=== PATIENT | male | born 1980 | race Caucasian/White ===

== ENCOUNTER 2020-12-29 01:50 | Outpatient (CLI) | payer OTHER, SELFPAY ==
[2020-12-30 13:07] LABS: COVID-19 RT-PCR UVMMC Result Negative (Negative)
== END 2020-12-29 02:10 ==
PROVIDERS: PCP Nurse Practitioner Family; Visit Provider Nurse Practitioner Family
DX: Z20.822 Contact with and (suspected) exposure to COVID-19 (principal)
CPT/HCPCS: U0003

== ENCOUNTER 2021-01-26 11:24 | Outpatient (REF) | payer OTHER, SELFPAY ==
[2021-01-26 13:21] LABS: Anion Gap 3.8 mmol/L (3-11); BUN 13 mg/dL (7-18); CO2 28.2 mmol/L (21.0-32.0); CREATININE 0.9 mg/dL (0.70-1.30); Calcium 9.1 mg/dL (8.5-10.1); Calculated LDL 167 mg/dL (<100); Chloride 104 mmol/L (98-107); Cholesterol 231 mg/dL (<200); Glucose 106 mg/dL (74-106); HDL Cholesterol 52 mg/dL (40-60); Potassium 4.5 mmol/L (3.5-5.1); Sodium 136 mmol/L (136-145); Triglyceride 62 mg/dL (<150)
== END 2021-01-26 11:25 | disposition home or self-care (01) ==
LOC: LBN 11:24
PROVIDERS: PCP Nurse Practitioner Family; Visit Provider Nurse Practitioner Family
DX: Z00.00 Encounter for general adult medical examination without abnormal findings (principal); Z13.220 Encounter for screening for lipoid disorders; Z13.228 Encounter for screening for other metabolic disorders
CPT/HCPCS: 80048; 80061

== ENCOUNTER 2021-04-02 10:58 | Outpatient (CLI) | payer OTHER, SELFPAY ==
--- NOTE | 2021-04-02 09:00 | DI.RAD_ITS ---
Exam(s) XR LUMBAR SPINE COMPLETE EXAM: XR LUMBAR SPINE COMPLETE CLINICAL HISTORY: osteopathology M54.5 LOW BACK PAIN. TECHNIQUE: 2D digital imaging was performed. COMPARISON: No exams were available for comparison FINDINGS: There is normal alignment. No spondylolysis or spondylolisthesis. There is disc space narrowing at L1-L2 and L2-L3. Endplate osteophytes are seen from L1-L2 through L3-L4. No acute fracture or sublu xation is seen. The bones are normally mineralized. The soft tissues are unremarkable. IMPRESSION: [id number] degenerative changes in the lumbar spine. DATA REPOSITORY: RADIATION DOSE DELIVERED:
--- NOTE | 2021-04-02 09:00 | DI.RAD_ITS ---
Exam(s) XR HIP LT COMPLETE AP PELVIS EXAM: XR HIP LT COMPLETE AP PELVIS CLINICAL HISTORY: left hip apin M54.9 LOW BACK PAIN, M19.90 OSTEOARTHRITIS. TECHNIQUE: 2D digital imaging was performed. COMPARISON: No exams were available for comparison FINDINGS: The bones are normally mineralized. The sacroiliac joints and symphysis pubis are intact. Mild dege nerative changes are seen in the hips. The soft tissues are unremarkable. No suspicious lytic or sc lerotic lesions are seen. IMPRESSION: Mild degenerative changes of the hips. DATA REPOSITORY: RADIATION DOSE DELIVERED:
== END 2021-04-02 11:18 ==
PROVIDERS: PCP Nurse Practitioner Family; Visit Provider Nurse Practitioner Family
DX: M54.5 Low back pain (principal); M51.36 Other intervertebral disc degeneration, lumbar region; M25.78 Osteophyte, vertebrae
CPT/HCPCS: 72110; 73502

== ENCOUNTER 2021-04-09 01:52 | Outpatient (CLI) | payer OTHER, SELFPAY ==
--- NOTE | 2021-04-09 08:45 | DI.MRI_ITS ---
Exam(s) MR LUMBAR SPINE WO EXAM: MR LUMBAR SPINE WO CLINICAL HISTORY: DJD lumbar spine, chronic low back pain,M51.36. TECHNIQUE: Multiplanar multisequence MRI of the Lumbar spine was performed. COMPARISON: No exams were available for comparison FINDINGS: Five lumbar vertebrae are presumed. Conus medullaris is at normal level. There is no evidence of conus mass nor subjacent clumping of in trathecal nerve roots to suggest arachnoiditis. The distal thecal sac appears unremarkable.There is no evidence of Tarlov intrasacral cysts nor other significant findings within the sacral canal Bones:There are no fractures nor ominous osseous lesions in the lumbar vertebral bodies and visualize d sacrum. There are prominent Modic type 1 sub endplate marrow edema changes on both sides of the L2 -3 disc space. With respect to the individual levels... T12-L1: Normal disc height and signal. However, there is a small posterolateral left disc protrusion seen on the sagittal images. The axial sequences did not cover this area. L1-2: Advanced disc space narrowing both sides the disc space. Left-sided osteophytes. Small benign intraosseous hemangioma seen in the posterior aspect of L1 vertebral body. Asymmetric mild retrolis thesis of L1 upon L2, slightly more so left of center at with also annular bulging at this level. Ce ntral canal dimensions are lower normal. There is slight impression of the anterior left side of the thecal sac at this level by the annular bulging. There is no significant foraminal stenosis. No fa cet arthropathy. L2-3: Advanced disc height loss also evident at this level, more prominent on the right than the left side of this disc space and indeed there are more prominent Modic type 1 sub endplate marrow edema c hanges on the right side where there also anterolateral osteophytes. There is an element of mild ret rolisthesis of L 2 upon L3 at this level. Mild central spinal canal stenosis severe foraminal stenos is on the right side at this level. Milder-moderate foraminal stenosis on the left side at this leve l. Moderate facet arthropathy. L3-4: Mild decreased disc height at this level. Mild retrolisthesis of L3 relative to L4. There is annular bulging with a superimposed posterolateral left disc protrusion. Mild central spinal canal s tenosis. Severe foraminal stenosis evident on the left side at this level. Milder foraminal stenosi s on the right side. Mild facet arthropathy bilaterally. L4-5: Preserved disc height and signal. No disc herniation at this level. No central canal stenosis . No foraminal stenosis. No facet arthropathy. L5-S1: Normal disc height and signal. No disc herniation or central canal stenosis nor foraminal magali nosis. No facet arthropathy. Soft tissues: paraspinal soft tissues appear unremarkable. IMPRESSION: 1. Most significant findings here are in the mid and upper lumbar spine as described above at L2-3 an d L3-4 levels where there is an element of retrolisthesis of both these levels and severe asymmetric foraminal stenosis, severe on the right side L2-3 level and severe on the left side at L3-4 level. A lso mild canal stenosis centrally at both these levels. 2. There are prominent Modic type 1 sub endplate marrow edema changes at L2-3 level on the right side where there is advanced disc space narrowing. 3. No significant findings at L4-5 and L5-S1 levels. DATA REPOSITORY:
== END 2021-04-09 02:12 ==
PROVIDERS: PCP Nurse Practitioner Family; Visit Provider Nurse Practitioner Family
DX: M51.36 Other intervertebral disc degeneration, lumbar region (principal); M54.5 Low back pain; G89.29 Other chronic pain
CPT/HCPCS: 72148

== ENCOUNTER 2021-05-18 13:09 | Outpatient (REF) | payer OTHER, SELFPAY ==
[2021-05-18 18:09] LABS: Abs Immature Grans 0.01 10^3/uL (0.0-0.06); Absolute Basophil Count 0.09 10^3/uL (0.0-0.2); Absolute Eosinophil Count 0.14 10^3/uL (0.0-0.7); Absolute Lymphocyte Count 2.36 10^3/uL (1.2-3.4); Absolute Neutrophil Count 2.13 10^3/uL (1.2-6.7); Basophils % 1.7; Eosinophils % 2.7; HCT 46.7 % (40.0-50.0); HGB 15.5 g/dL (13.5-17.5); Immature Grans % 0.2; Lymphocytes % 45.1; MCH 27.2 pg (27.0-33.0); MCHC 33.2 % (32.0-36.0); MCV 81.9 fL (80-95); MPV 9.1 fL (8.0-11.0); Monocytes % 9.6; Neutrophils % 40.7; Nucleated RBC 0 %; Platelet Count 282 10^3/uL (130-400); RDW 12.7 % (11.8-14.1); RDW-SD 38.1 fL; WBC 5.23 10^3/uL (4.4-10.8)
[2021-05-18 18:17] LABS: ALT 58 U/L (16-63); AST 33 U/L (15-37); Albumin 4.4 g/dL (3.4-5.0); Alkaline Phosphatase 66 U/L (46-116); BUN 16 mg/dL (7-18); Bilirubin, Total 0.6 mg/dL (0.2-1.0); CREATININE 0.9 mg/dL (0.70-1.30); Calcium 9.5 mg/dL (8.5-10.1); Chloride 105 mmol/L (98-107); Glucose 80 mg/dL (74-106); Potassium 4.5 mmol/L (3.5-5.1); Sodium 142 mmol/L (136-145); Total Protein 7.5 g/dL (6.4-8.2)
== END 2021-05-18 13:10 | disposition home or self-care (01) ==
LOC: LBN 13:09
PROVIDERS: PCP Nurse Practitioner Family; Visit Provider Nurse Practitioner Family
DX: Z01.818 Encounter for other preprocedural examination (principal); M54.5 Low back pain; G89.29 Other chronic pain
CPT/HCPCS: 80053; 85025

== ENCOUNTER 2021-06-08 16:58 | Emergency (ER) | payer OTHER, SELFPAY ==
[2021-06-08] VITALS (15 sets, daily range): BP systolic 121–139; BP diastolic 70–85; PULSE 76–91; RESP 13–22; TEMP 36.7; O2SAT 98–99
--- NOTE | 2021-06-08 17:00 | RT.EKG_ITS ---
APPROVED REPORT Exam: Resting ECG Reason for Exam: syncope Patient Location: E HR:72 bpm ECG Measurements Heart Rate 72 AXIS MI 174 P 72 QRSd 101 QRS 72 QT 346 T 43 QTc 378 Conclusion Sinus rhythm...normal P axis, V-rate 60- 99 no WPW, no brugada, Qtc 378, no HOCM. No STEMI, non-diagnostic EKG
[2021-06-08] MEDS: Normal Saline 1,000 ML 1000 ML IV (17:14)
[2021-06-08 17:27] LABS: Abs Immature Grans 0.04 10^3/uL (0.0-0.06); Absolute Eosinophil Count 0.32 10^3/uL (0.0-0.7); Absolute Lymphocyte Count 2.49 10^3/uL (1.2-3.4); Absolute Monocyte Count 0.78 10^3/uL (0.1-0.8); Absolute Neutrophil Count 5.51 10^3/uL (1.2-6.7); Basophils % 1.1; Eosinophils % 3.5; HCT 46.3 % (40.0-50.0); HGB 15.4 g/dL (13.5-17.5); Immature Grans % 0.4; Lymphocytes % 26.9; MCH 26.6 pg (27.0-33.0); MCHC 33.3 % (32.0-36.0); MPV 8.6 fL (8.0-11.0); Monocytes % 8.4; Neutrophils % 59.7; Nucleated RBC 0 %; Platelet Count 290 10^3/uL (130-400); RBC 5.79 10^6/uL (4.36-5.78); RDW 12.2 % (11.8-14.1); RDW-SD 35.4 fL; WBC 9.24 10^3/uL (4.4-10.8)
--- NOTE | 2021-06-08 17:30 | W.ED.GENAD ---
Discharge Plan Disposition Patient Disposition: HOME Condition: Stable Discharge Details Clinical Impression: Syncope, Acute dehydration Primary Care Provider: Oly Hartman ED Provider: Soniya Rivera Home Meds and New Rx's Prescriptions: Continued triamcinolone acetonide 0.1 % cream 1 applic topical DAILY PRN (Reason: dermatitis) Qty: 80 RF: 0 ibuprofen 600 MG tablet 600 mg PO Q6H PRN PRNQty: 30 RF: 0 Discharge Instructions Instructions: Dehydration (ED), Syncope (ED) Additional Instructions: I am concerned that your syncopal episodes may be linked to dehydration as well as the marijuana. Please abstain from any further of this. Please follow your postsurgical recommendations from your surgeon. Please encourage hydration. Tylenol to help with discomfort. If you develop fever/chills, increased pain or other new/worsening symptoms care urgently once again. Please follow-up with primary care next week for reevaluation. Referrals: Oly Hartman NP [Primary Care Provider] - Discharge Data Discharge Date/Time-TO BE ENTERED AT DEPARTURE: 06/08/21 19:40 Medical Decision Making Patient is a 41-year-old gentleman brought in via EMS and accompanied by his , chief complaint of syncopal episodes. Patient underwent discectomy at [facility] 10 days ago. States that his pain has progressively been improving. He has not been using any oral medications to help with discomfort. However, he does report the use of smoking marijuana and did smoke new marijuana today. 15 minutes after smoking, he suffered to syncopal episodes. Did have prodromal symptoms including feeling lightheaded and visual changes. He denies any headache. Denies any pain after syncopal episodes. Reports that this is hapened outside in the yard. Denies any chest pain, palpitations prior to or after event. He has not had episodes like this historically. Denies any recent fevers or chills. States that he is otherwise been feeling quite well in the postsurgical recovery phase. On exam, patient appears nontoxic. His vital signs are stable. His incision appears to be healing well with no evidence of infection. Normal cardiac exam. Lung sounds clear. Neurologic exam is intact. Differential diagnosis this time includes syncopal episode, dysrhythmia, anemia versus other. I not see any evidence of CVA, patient is PERC negative. Physical exam is not consistent with dissection. See no indication of infection on his exam. Also concerned that this may be associated with his marijuana use. STates that typically he smokes marijuana that he grows himself but that 15 minutes prior to the syncopal episodes he smoke marijuana he got from a friend. ECG reviewed by Dr. Hancock. NSR, rate 72. Please see her interpretation. No acute abnormality noted. Orthostatics obtained, no sigfnciant change Labs reviewed. No leukocytosis. Patient is not anemic, stable H&H. CMP without significant abnormality. Troponin within normal limits. Thyroid within normal limits. Urinalysis suggest dehydration. Patient is receiving hydration here. UDS significant for positive THC. Reevaluated the patient and discussed findings. Patient is feeling much improved. Patient was initially very hesitant to take any analgesics, including Tylenol. I did recommend they touch base with surgeon regarding the use of NSAIDs in the postoperative period. Has finally agreed to this for his postoperative pain. His pain did increase when just laying in our stretcher here. He does find improvement with ambulation. Patient ambulated with nursing staff without difficulty. Patient is feeling improved and requesting discharge at this time. Exam, history and work-up here does not suggest cardiac etiology. I did recommend that he abstain from marijuana. I recommended that he does treat his pain with Tylenol and speak further with his surgeon regarding any further postoperative instructions. Encourage hydration. does report that he drinks minimally throughout the course of the day. She will also help encourage hydration. Strict return precautions were discussed. I have asked that he follow-up with primary care in 1 week for reevaluation. All his questions and concerns were addressed and he is in agreement this plan. HPI General Mode of arrival: EMS. Date/Time Provider Initiated Documentation: 06/08/21 17:01. Limitations to Documentation: no limitations. Information obtained by: patient, family (), EMS and RN notes reviewed. History of Present Illness 41 year old M presents to the emergency department with the chief complaint of syncopal episodes after recent back surgery, described as moderate, with intensity rated at 6. Quality is described as aching, and is localized to the back. Patient reports no radiation. Patient started experiencing this week(s) (pain has been improving slowly since back surgery 10 days ago) and it has been constant. Immobilization improves symptom(s), Movement worsens symptoms . Patient notes syncope; denies confusion, chest pain, diaphoresis, fever/chills, headaches, loss of appetite, nausea/vomiting, rash, seizure, shortness of breath and weakness. Patient did receive the following treatments prior to arrival, none Related Data Home Medications Medication Instructions Recorded Confirmed ibuprofen 600 mg PO Q6H PRN PRN #30 tab 12/08/16 06/08/21 triamcinolone acetonide 0.1 % 1 applic TOPICAL DAILY PRN #80 g 01/26/21 06/08/21 topical cream Previous Rx's Medication Instructions Recorded ibuprofen 600 mg PO Q6H PRN PRN #30 tab 12/08/16 triamcinolone acetonide 0.1 % 1 applic TOPICAL DAILY PRN #80 g 01/26/21 topical cream Allergies Allergy/AdvReac Type Severity Reaction Status Date / Time lactose Allergy Diarrhea Unverified 06/08/21 17:01 General Stated Complaint: Dizzy/Sync STARR: 3 Review of Systems Constitutional Constitutional: Reports as per HPI, Denies chills, Denies fever(s), Denies headache(s), Denies lethargy and Denies poor appetite Eyes Eyes: Denies change in vision ENT Ears, Nose, Mouth, and Throat: Denies dizziness and Denies headache(s) Cardiovascular Cardiovascular: Reports as per HPI, Denies dyspnea and Denies dyspnea on exertion Respiratory Respiratory: Reports as per HPI, Denies chest congestion, Denies cough, Denies pain on inspiration, Denies pain with cough, Denies dyspnea, Denies dyspnea on exertion and Denies wheezing Gastrointestinal Gastrointestinal: Reports as per HPI, Denies abdominal pain, Denies diarrhea, Denies nausea and Denies vomiting Genitourinary Genitourinary: Denies system reviewed and no additional complaints, except as documented (denies change in urinary habits) Musculoskeletal Musculoskeletal: Reports as per HPI and Denies back pain Integumentary/Breasts Skin/Breast: Reports as per HPI and Denies rash Neurologic Neurologic: Reports as per HPI, Denies dizziness and Denies headache(s) Allergic/Immunologic Allergic/Immunologic: Denies wheezing [facility] Medical History Degenerative disc disease, lumbar Hyperlipidemia Osteoarthritis Surgical History S/P left inguinal hernia repair Family History Mother Heart disease Rheumatoid arthritis Type 2 diabetes mellitus Father No problems noted. Sister No problems noted. Sister No problems noted. Sister No problems noted. Brother No problems noted. Maternal Grandfather No problems noted. Maternal Grandmother Dementia Paternal Grandfather No problems noted. Paternal Grandmother No problems noted. Social History Smoking/Tobacco Use Status: Current-Occasional Tobacco Type: cigarettes Tobacco: How many years used: 20 Smokeless tobacco user: snuff and snus Quit status: not considering quitting Second Hand Exposure: Yes Smoking risk assessment performed?: Yes Alcohol Intake: former Drug use: Daily Substance use type: marijuana Do you feel safe at home: Yes Do you feel safe in your relationship?: Yes Exam Const General: cooperative, healthy appearing, comfortable, no acute distress, well developed and intoxicated appearing Nutritional Appearance: average body habitus and well nourished Orientation: alert, awake and oriented x3 HENMT Head: normal to inspection, no palpable skull fracture, normocephalic and atraumatic Ears: hearing grossly normal bilaterally, external ears normal and TM's normal bilaterally Face and sinus: normal facial exam Mouth: oral mucosae normal and moist mucous membranes Throat: posterior oropharynx normal Eyes General: appearance normal, both eyes and all related structures Chest Chest: normal inspection of the chest, normal palpation of entire chest wall and no crepitus Resp Effort & Inspection: normal respiratory effort, able to speak in complete sentences and no respiratory distress Auscultation: clear to auscultation bilaterally, no rales, no rhonchi and no wheezes Cardio Rate: regular rate Rhythm: regular rhythm Heart Sounds: S1 normal and S2 normal GI Inspection: normal to inspection, no edema and non-distended Palpation: soft, no hepatosplenomegaly, not firm, no guarding, not rigid and nontender Auscultation: normal bowel sounds Back/Spine/Pelvis Back: no CVA tenderness Thoracic/Lumbar Spine: other (incision over lumbar spine healing well with no evidence of infection on ex) Skin Trauma: other (incision, healing well) Neuro General: patient alert, patient awake and patient oriented x3 Cognition: normal cognition Speech: speech normal Gait: normal gait Motor: muscle tone normal throughout, strength 5/5 throughout, no pronator drift, no movement abnormalities noted and no fasciculations Sensory Exam: no sensory deficits noted Coordination: [id number]-[id number] test normal, [id number] test normal, Romberg test normal and Does not sway with eyes open Extrem General: normal to inspection, capillary refill normal, no pedal edema, no calf tenderness and normal gait Psych Appearance: grossly normal and well kempt Mental Status: mental status grossly normal Speech and Movement: speech and movement normal Course Vital Signs Vital signs: Vital Signs Temperature 36.7 C 06/08/21 16:58 Pulse 89 06/08/21 16:58 Respiratory Rate 20 06/08/21 16:58 Blood Pressure 137/77 06/08/21 16:58 Pulse Oximetry 99 06/08/21 16:58 Temperature 36.7 C 06/08/21 16:58 Temperature Source Skin 06/08/21 16:58 Pulse 89 06/08/21 16:58 Respiratory Rate 20 06/08/21 16:58 Respiratory Effort Non-Labored 06/08/21 17:14 Respiratory Depth Normal 06/08/21 17:14 Respiratory Pattern Normal 06/08/21 17:14 Blood Pressure 137/77 06/08/21 16:58 Blood Pressure Position Sitting 06/08/21 16:58 Pulse Oximetry 99 06/08/21 16:58 Oxygen Delivery Method Room Air 06/08/21 16:58 Oxygen Flow Rate 0 06/08/21 16:58 Pain Level 6 06/08/21 16:58
[2021-06-08 17:51] LABS: PTT Activated 20.7 sec (21.0-27.5); Prothrombin Time 10.4 sec (9.3-11.0)
[2021-06-08 17:57] LABS: ALT 37 U/L (16-63); AST 19 U/L (15-37); Albumin 3.9 g/dL (3.4-5.0); Alkaline Phosphatase 62 U/L (46-116); Anion Gap 13.3 mmol/L (3-11); BUN 17 mg/dL (7-18); Bilirubin, Total 0.3 mg/dL (0.2-1.0); CO2 23.7 mmol/L (21.0-32.0); Calcium 9.2 mg/dL (8.5-10.1); Chloride 101 mmol/L (98-107); Glucose 112 mg/dL (74-106); Magnesium 1.9 mg/dL (1.8-2.4); Potassium 3.8 mmol/L (3.5-5.1); Sodium 138 mmol/L (136-145); TSH 2.44 uIU/mL (0.36-3.74); Total Protein 7.6 g/dL (6.4-8.2)
[2021-06-08 17:58] LABS: Troponin I < 0.05 ng/mL (<0.06)
[2021-06-08 18:03] LABS: Bilirubin Negative (Negative); Blood Negative (Negative); Clarity Clear (Clear); Glucose Negative (Negative); Ketones Negative (Negative); Leukocyte Esterase Negative (Negative); Nitrite Negative (Negative); Specific Gravity >= 1.030 (1.005-1.025); Urobilinogen 0.2 EU/dL (Up TO 0.2)
[2021-06-08 18:29] LABS: *AMPHETAMINES SCREEN URINE Negative (Negative); *BARBITURATES SCREEN URINE Negative (Negative); *BENZODIAZEPINES SCREEN URINE Negative (Negative); Cannabinoids THC Positive (Negative); Cocaine Screen,Urine Negative (Negative); METHADONE URINE SCREEN Negative (Negative); OPIATES URINE SCREEN Negative (Negative)
[2021-06-08 18:31] LABS: Tricyclic Antidepressants Negative (Negative)
[2021-06-08] MEDS: Acetaminophen 500 MG TAB 1000 MG PO (19:03)
== END 2021-06-08 19:40 | disposition home or self-care (01) ==
PROVIDERS: Emergency Provider Physician Assistant; PCP Nurse Practitioner Family
DX: R55 Syncope and collapse (principal); E86.0 Dehydration
CPT/HCPCS: 80053; 80307; 93005; 96360; 96361; 99284; 81003; 83735; 84443; 84484; 85025; 85610; 85730; 93010

== ENCOUNTER 2021-12-14 02:01 | Outpatient (CLI) | payer OTHER, SELFPAY ==
--- NOTE | 2021-12-14 06:30 | DI.MRI_ITS ---
Exam(s) MR LUMBAR SPINE WO/W EXAM: MR LUMBAR SPINE WO/W CLINICAL HISTORY: CONTINUED BACK PAIN SINCE SURGERY DESPITE PT.m51.36. TECHNIQUE: Multiplanar multisequence MRI of the Lumbar spine was performed. Both pre and post contra st sequences were performed. IV contrast injected was Dotarem 14 mL COMPARISON: MR MR LUMBAR SPINE WO from 04/09/2021 . This patient apparently had interval surgery in the lumbar spine region in May 2021 FINDINGS: Five lumbar vertebrae are again presumed. Conus medullaris is at normal level. There is no evidence of conus mass nor subjacent clumping of in trathecal nerve roots to suggest arachnoiditis. The distal thecal sac appears unremarkable.There is no evidence of Tarlov intrasacral cysts nor other significant findings within the sacral canal Bones:There are no fractures nor ominous osseous lesions in the lumbar vertebral bodies and visualize d sacrum. Modic type 1 sub endplate edema is again noted on both sides of the L2-3 disc space, again noted to be more prominent on the right side and most probably later to the more advanced disc space narrowing on the right side when compared to the left side of the disc space at this level With respect to the individual levels... T12-L1: Again noted is a posterior lateral left disc protrusion as seen on the sagittal images (axial images were not performed through this disc space). This appears unchanged from the prior study. L1-2: Again noted is significant disc height loss and on both sides of this disc space. Again noted mild asymmetric retrolisthesis of L1 upon L2, left of center.Small disc herniation posterolateral lef t is again noted at this level, extending posteriorly 4 millimeters and approximately 9 millimeters w savana. This mildly compresses the left side of the thecal sac at this level. Does not extend into the exiting left neural foramen. There is no foraminal stenosis on either side at this level. No facet arthropathy. L2-3: This level again exhibits advanced narrowing of the disc space, more so right than left side an d there are Modic type sub endplate marrow edema changes again noted in the sub endplate regions at t his level. Mild retrolisthesis of L2 upon L3 again noted. No distinct disc herniation. Mild centra l canal stenosis again noted. Significant narrowing of the exiting right neural foramen is again not ed (vertical foraminal stenosis). Only minimal foraminal stenosis on the left side at this level. M ild facet degenerative changes. Some enhancement is noted within the posterior annulus at this level , possibly related to recent surgery. No new significant disc herniation evident at this level. No abnormal fluid collection. Mild facet degenerative changes. L3-4: This level again exhibits mild decreased disc height and mild retrolisthesis of L3 upon L4 is a gain noted. The previously described annular bulging posterolateral left at this level is again note d and extending into the exiting left neural foramen, unchanged. Severe left-sided foraminal stenosi s is again noted at this level. Milder foraminal stenosis on the right side again noted. Mild facet degenerative changes. L4-5: Normal disc height and signal. No disc herniation. No central canal stenosis. No foraminal s tenosis. No facet arthropathy L5-S1: Normal disc height and signal. No disc herniation. No central canal stenosis. No foraminal stenosis. Soft tissues: paraspinal soft tissues appear unremarkable.No evidence of epidural nor paraspinal abs cess. No evidence of osteomyelitis. IMPRESSION: 1. Previously described findings at L2-3 and L3-4 levels are again noted, similar to previous. There is an element of retrolisthesis at both of these levels and asymmetric foraminal stenosis on either side as described above and as previously present. Mild central canal stenosis evident at both these levels. 2. At L1-2 level there is a posterolateral left disc protrusion noted which indents left side of the thecal sac but does not appear to extend into the exiting left neural foramen. There is no foraminal stenosis on either side at this level. 3. Some enhancement is seen in the posterior annulus at L2-3 level, probably postsurgical. No new di sc protrusion at this level. 4. No evidence of epidural nor paraspinal abscess. DATA REPOSITORY:
[2021-12-14] MEDS: Gadoterate meglumine 20 ML VIAL 14 ML IVP (08:06)
[2021-12-14] MEDS: Normal Saline Flush 10 ML SYR IVP (08:06)
== END 2021-12-14 02:21 ==
PROVIDERS: PCP Nurse Practitioner Family; Visit Provider Nurse Practitioner Family
DX: M51.36 Other intervertebral disc degeneration, lumbar region (principal); Z98.890 Other specified postprocedural states; M48.061 Spinal stenosis, lumbar region without neurogenic claudication; M51.26 Other intervertebral disc displacement, lumbar region
CPT/HCPCS: 72158

== ENCOUNTER 2023-02-03 18:23 | Outpatient (REF) | payer OTHER, SELFPAY ==
[2023-02-03 15:47] LABS: ALT 29 U/L (16-63); AST 22 U/L (15-37); Albumin 4.1 g/dL (3.4-5.0); Alkaline Phosphatase 52 U/L (46-116); Anion Gap 8.9 mmol/L (3-11); BUN 12 mg/dL (7-18); Bilirubin, Total 0.4 mg/dL (0.2-1.0); CO2 25.1 mmol/L (21.0-32.0); CREATININE 0.8 mg/dL (0.70-1.30); Calcium 9.3 mg/dL (8.5-10.1); Calculated LDL 162 mg/dL (<100); Chloride 106 mmol/L (98-107); Cholesterol 230 mg/dL (<200); Estimated GFR 111.22 (mL/min/1.73m2); Glucose 87 mg/dL (74-106); HDL Cholesterol 58 mg/dL (40-60); Potassium 4.3 mmol/L (3.5-5.1); Sodium 140 mmol/L (136-145); Total Protein 7.2 g/dL (6.4-8.2); Triglyceride 51 mg/dL (<150)
== END 2023-02-03 18:24 | disposition home or self-care (01) ==
LOC: NCHCN 18:23
PROVIDERS: Visit Provider Nurse Practitioner Family
DX: E78.5 Hyperlipidemia, unspecified (principal)
CPT/HCPCS: 80053; 80061

== ENCOUNTER 2024-02-05 12:09 | Outpatient (REF) | payer OTHER, SELFPAY ==
[2024-02-05 15:58] LABS: ALT 49 U/L (16-63); AST 29 U/L (15-37); Albumin 4.7 g/dL (3.4-5.0); Alkaline Phosphatase 57 U/L (46-116); BUN 15 mg/dL (7-18); Bilirubin, Total 0.4 mg/dL (0.2-1.0); CREATININE 0.9 mg/dL (0.70-1.30); Calcium 9.7 mg/dL (8.5-10.1); Calculated LDL 192 mg/dL (<100); Chloride 104 mmol/L (98-107); Cholesterol 271 mg/dL (<200); Estimated GFR 106.67 (mL/min/1.73m2); Glucose 89 mg/dL (74-106); HDL Cholesterol 55 mg/dL (40-60); Potassium 4.1 mmol/L (3.5-5.1); Sodium 139 mmol/L (136-145); Total Protein 8.1 g/dL (6.4-8.2); Triglyceride 123 mg/dL (<150)
== END 2024-02-05 12:10 | disposition home or self-care (01) ==
LOC: NCHCN 12:09
PROVIDERS: Referring Provider Nurse Practitioner Family; Visit Provider Nurse Practitioner Family
DX: E78.5 Hyperlipidemia, unspecified (principal)
CPT/HCPCS: 80053; 80061